=== PATIENT | male | born 1985 | race Caucasian/White ===

== ENCOUNTER 2021-04-21 16:22 | Emergency (ER) | payer OTHER ==
[~2021-04-21] VITALS: Ht 170.2 cm; Wt 95.3 kg
[2021-04-21 16:29] VITALS: BP 162/128
--- NOTE | 2021-04-21 16:50 | NUR ---
PT AMBULATED TO BED 8
--- NOTE | 2021-04-21 17:12 | NUR ---
URINE DIP WAS DONE, RESULTS SHOWN TO DR GREGORY.
--- NOTE | 2021-04-21 17:14 | NUR ---
LAB AT BEDSIDE.
--- NOTE | 2021-04-21 17:15 | NUR ---
PATIENT TO CT SCAN VIA GURNEY.
--- NOTE | 2021-04-21 17:24 | NUR ---
35 Y/O MALE WITH MID ABD PAIN AND HEADACHE X 1 WEEK. PAIN 5/10, FEELS LIKE PRESSURE AND DISCOMFORT. NKA. HE ALSO HAD HIGH BP. PMH: HTN, LAST MARIJUANA SMOKED YESTERDAY, LAST METH USE 1 WEEK AGO.
[2021-04-21 17:29] LABS: BASOPHILS % (AUTO) 0.4 % (0.0-2.0); EOSINOPHILS # (AUTO) 0.3 K/uL (0-0.4); EOSINOPHILS % (AUTO) 2.8 % (0.0-4.0); HEMATOCRIT 48.1 % (36-52); HEMOGLOBIN 16.7 g/dL (12.0-18.0); LYMPHOCYTES # (AUTO) 2.3 K/uL (2.0-11.5); LYMPHOCYTES % (AUTO) 25.1 % (20.5-51.1); MEAN CORPUSCULAR HEMOGLOBIN 31 pg (27-31); MEAN CORPUSCULAR HGB CONC 35 g/dL (33-37); MEAN CORPUSCULAR VOLUME 89.1 fL (80-94); MONOCYTES # (AUTO) 0.7 K/uL (0.8-1.0); MONOCYTES % (AUTO) 7.4 % (1.7-9.3); NEUTROPHILS # (AUTO) 5.9 K/uL (1.8-7.7); NEUTROPHILS % (AUTO) 64.3 % (42.2-75.2); PLATELET COUNT (AUTO) 331 K/uL (140-450); RED CELL DISTRIBUTION WIDTH 13.4 % (11.6-13.7); WHITE BLOOD COUNT (AUTO) 9.1 K/uL (4.8-10.8)
[2021-04-21 17:50] LABS: ALBUMIN 3.7 g/dL (3.4-5.0); ANION GAP 10.6 (8-16); CARBON DIOXIDE 28.8 mmol/L (21-32); CREATININE 0.9 mg/dL (0.6-1.3); POTASSIUM 3.4 mmol/L (3.5-5.1)
[2021-04-21] MEDS ORDERED: lisinopriL 20 MG TAB PO ONE (18:10)
[2021-04-21] MEDS ORDERED: CRUSHER, PILL MC ONE (18:17)
[2021-04-21] MEDS ORDERED: LISI-486 PO (18:36)
[2021-04-21 19:01] VITALS: BP 191/129
--- NOTE | 2021-04-21 19:02 | NUR ---
Patient discharged with v/s stable. Written and verbal after care instructions given and explained. Patient alert, oriented and verbalized understanding of instructions. Ambulatory with steady gait. All questions addressed prior to discharge. ID band removed. Patient advised to follow up with PMD. Rx of LISINOPRIL given. Opportunity to ask questions provided and answered.
--- NOTE | 2021-04-21 19:03 | NUR ---
The patient's care was reviewed and supervised by Theresa Freedman RN.
== END 2021-04-21 19:02 | disposition home or self-care (01) ==
LOC: MED 16:22
DX: R10.9 Unspecified abdominal pain (principal); I10 Essential (primary) hypertension; F17.210 Nicotine dependence, cigarettes, uncomplicated; F12.90 Cannabis use, unspecified, uncomplicated; F15.90 Other stimulant use, unspecified, uncomplicated; Z79.899 Other long term (current) drug therapy
CPT/HCPCS: 36415; 80053; 81002; 83690; 85025; 99284

== ENCOUNTER 2022-09-09 19:05 | Emergency (ER) | payer OTHER ==
[~2022-09-09 19:05] MED LIST: LISI-486 PO
--- NOTE | 2022-09-09 20:20 | NUR ---
Called no show in lobby or outside.
--- NOTE | 2022-09-09 20:52 | NUR ---
Called second time- no show in lobby or outside.
--- NOTE | 2022-09-09 20:52 | NUR ---
PATIENT LEFT WITHOUT BEING SEEN BY DR. Marquez. NO FURTHER CARE PROVIDED FOR PATIENT.
== END 2022-09-09 20:20 | disposition left against medical advice (07) ==
LOC: MED 19:05
DX: R51.9 Headache, unspecified (principal); Z53.21 Procedure and treatment not carried out due to patient leaving prior to being seen by health care provider